=== PATIENT | male | born 1970 | race American Indian/Alaskan Native ===

== ENCOUNTER 2016-11-14 08:23 | Inpatient (IN) | payer MEDICAID, OTHER ==
[2016-11-14 08:24] VITALS: BMI 29.9
[2016-11-14 08:44] VITALS: O2SAT 97
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
[2016-11-14] MEDS ORDERED: Pneumococcal 23-Valent Vaccine IM ONE (13:08)
[2016-11-14] MEDS ORDERED: Influenza Virus Vaccine 45 mcg/0.5 ml Syr IM ONE (13:08)
--- NOTE | 2016-11-15 13:15 | PCM.PYCHPN ---
Psychiatric Progress Note - Psychiatric Progress Note Patient seen today, length of contact: 15 min Patient Chief Complaint: "I am still hearing voices" Problems Identified/Issues Discussed: The pt is seen, chart reviewed, case discussed with staff. The pt is compliant with medications and reports no side-effects. Symptoms are improving slowly but needs more time to stabilize. After care discussed, support and psychoeducation given. He asked the continuity writer to call his ex-, which continuity writer did. She said she knew he was in the hospital already. he wants to go back to [facility] Medication Change: Yes (increase meds) Medical Record Reviewed: Yes Mental Status Examination - Cognitive Function Orientation: Person, Place, Situation, Time Memory: Impaired Attention: Poor Concentration: Poor Association: WNL Fund of Knowledge: Poor - Mood Mood: Depressed, Anxious - Affect Affect: Constricted - Speech Speech: Appropriate - Formal Thought Process Formal Thought Process: Hallucinations, Delusions, Paranoia - Suicidal Ideation Suicidal Ideation: No - Homicidal Ideation Homicidal Ideation: No Goal/Treatment Plan - Goal/Treatment Plan Need for Continued Stay: Discharge may exacerbated symptoms, Severe functional impairment Progress Toward Problem(s) and Goals/Treatment Plan: Continue medications Support and psychoeducation daily Attend groups and activities daily After care planning by PRADIP Estimated Date of D/C: 11/20/16
--- NOTE | 2016-11-16 16:07 | PCM.PYCHPN ---
Psychiatric Progress Note - Psychiatric Progress Note Patient seen today, length of contact: 15 min Patient Chief Complaint: "Voices are mild now" Problems Identified/Issues Discussed: The pt is seen, chart reviewed, case discussed with staff. Symptoms are improving slowly but needs more time to stabilize. Still regressed and isolative. After care discussed briefly, support and psychoeducation given. No SEs from meds Medication Change: No Medical Record Reviewed: Yes Mental Status Examination - Cognitive Function Orientation: Person, Place, Situation, Time Memory: Impaired Attention: Poor Concentration: Poor Association: WNL Fund of Knowledge: Poor - Mood Mood: Depressed, Anxious - Affect Affect: Constricted - Speech Speech: Appropriate - Formal Thought Process Formal Thought Process: Hallucinations, Paranoia - Suicidal Ideation Suicidal Ideation: No - Homicidal Ideation Homicidal Ideation: No Goal/Treatment Plan - Goal/Treatment Plan Need for Continued Stay: Discharge may exacerbated symptoms, Severe functional impairment Progress Toward Problem(s) and Goals/Treatment Plan: Continue medications Support and psychoeducation daily Attend groups and activities daily After care planning by [facility] Estimated Date of D/C: 11/20/16
--- NOTE | 2016-11-17 13:22 | PCM.PYCHPN ---
Psychiatric Progress Note - Psychiatric Progress Note Patient seen today, length of contact: 15 min Patient Chief Complaint: I was hearing voices Problems Identified/Issues Discussed: The pt is seen, chart reviewed, case discussed with staff. Pt mood is irritable and angry today. Pt refused to answer any questions today. Pt stated that he was done for the day and that the only person he would answer to is his psychiatrist. Aftercare discussed, support and psychoeducation given. Medication Change: Yes (increase haldol) Medical Record Reviewed: Yes Mental Status Examination - Cognitive Function Orientation: Person, Place, Situation, Time Memory: Impaired Attention: Poor Concentration: Poor Association: WNL Fund of Knowledge: Poor - Mood Mood: Depressed, Anxious - Affect Affect: Constricted - Speech Speech: Appropriate - Formal Thought Process Formal Thought Process: Hallucinations, Paranoia - Suicidal Ideation Suicidal Ideation: No - Homicidal Ideation Homicidal Ideation: No Goal/Treatment Plan - Goal/Treatment Plan Need for Continued Stay: Discharge may exacerbated symptoms, Severe functional impairment Progress Toward Problem(s) and Goals/Treatment Plan: Schizophrenia paranoid type chronic CBT Psychoeducation Supportive therapy, group therapy, individual therapy Haldol 5 mg by mouth daily Haldol 10 mg by mouth daily at bedtime Cogentin 1 mg by mouth twice a day Trazodone 50 mg by mouth daily at bedtime Seroquel 200 mg by mouth daily at bedtime Alcohol use disorder mild Monitor signs and symptoms Use [place] for abstinence Cannabis use disorder severe Monitor signs and symptoms Use NH for abstinence HTN Continue prescribed medications (ASA, Lisinopril) Monitor signs and symptoms Hypercholesterolemia Continue prescribed medications (Atorvastatin) Monitor signs and symptoms Estimated Date of D/C: 11/20/16
--- NOTE | 2016-11-18 10:25 | PCM.PYCHPN ---
Psychiatric Progress Note - Psychiatric Progress Note Patient seen today, length of contact: 18 min Patient Chief Complaint: "I hear voices" Problems Identified/Issues Discussed: The pt seen, chart reviewed, case discussed. Pt states his mood is "okay" today. Pt states he feels his mood has improved from yesterday. Pt slept well and appetite is good. Pt reports hearing voices that say, "kill yourself." Pt states that he ignores the voices and has no intentions of suicide. Pt denies intentions of hurting others. Pt denies visual hallucinations. Pt denies being paranoid and does not believe others can read his mind. Patient's plan is to go home and continue taking his meds. He states that he will continue to see his psychiatrist. Aftercare discussed, support and psychoeducation given. Medical Problems: Hypertension Medication Change: Yes (Increase Haldol) Medical Record Reviewed: Yes Mental Status Examination - Cognitive Function Orientation: Person, Place, Situation, Time Memory: Impaired Attention: WNL Concentration: Poor Association: WNL Fund of Knowledge: Poor - Mood Mood: Depressed, Anxious - Affect Affect: Constricted - Speech Speech: Appropriate - Formal Thought Process Formal Thought Process: Hallucinations, Paranoia - Suicidal Ideation Suicidal Ideation: No - Homicidal Ideation Homicidal Ideation: No Goal/Treatment Plan - Goal/Treatment Plan Need for Continued Stay: Discharge may exacerbated symptoms, Severe functional impairment Progress Toward Problem(s) and Goals/Treatment Plan: Schizophrenia paranoid type-chronic CBT Psychoeducation Supportive therapy, group therapy, individual therapy Haldol 10 mg by mouth daily Haldol 10 mg by mouth daily at bedtime Cogentin 1 mg by mouth twice a day Trazodone 50 mg by mouth daily at bedtime Seroquel 200 mg by mouth daily at bedtime Alcohol use disorder mild Monitor signs and symptoms Use [place] for abstinence Cannabis use disorder severe CBT and psychoeducation Monitor signs and symptoms Use [place] for abstinence HTN Continue prescribed medications (ASA, Lisinopril) Monitor signs and symptoms Hypercholesterolemia Continue prescribed medications (Rosuvastatin Calcium) Monitor signs and symptoms Estimated Date of D/C: 11/20/16 - Smoking Cessation Smoking Cessation Initiated: No
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
--- NOTE | 2016-11-19 09:49 | PCM.PYCHPN ---
Psychiatric Progress Note - Psychiatric Progress Note Patient seen today, length of contact: 18 min Patient Chief Complaint: "I hear voices" Problems Identified/Issues Discussed: The pt seen, chart reviewed, case discussed. as per staff patient is better than yesterday. He reports improvement in his mood and voices. As per him the voices are calm down. he has started attending groups and meetings and appears more organized and less internally preoccupied. Patient's plan is to go home and continue taking his meds. He states that he will continue to see his psychiatrist. Discussed the possibility of Haldol Decanoate injection with the patient, but patient refused Aftercare discussed, support and psychoeducation given. Medical Problems: Hypertension Medication Change: No Medical Record Reviewed: Yes Mental Status Examination - Cognitive Function Orientation: Person, Place, Situation, Time Memory: Impaired Attention: WNL Concentration: WNL Association: WNL Fund of Knowledge: Poor - Mood Mood: Depressed, Anxious - Affect Affect: Constricted - Speech Speech: Appropriate - Formal Thought Process Formal Thought Process: Hallucinations, Paranoia - Suicidal Ideation Suicidal Ideation: No - Homicidal Ideation Homicidal Ideation: No Goal/Treatment Plan - Goal/Treatment Plan Need for Continued Stay: Discharge may exacerbated symptoms, Severe functional impairment Progress Toward Problem(s) and Goals/Treatment Plan: Schizophrenia paranoid type-chronic CBT Psychoeducation Supportive therapy, group therapy, individual therapy Haldol 10 mg by mouth daily Haldol 10 mg by mouth daily at bedtime Cogentin 1 mg by mouth twice a day Trazodone 50 mg by mouth daily at bedtime Seroquel 200 mg by mouth daily at bedtime Alcohol use disorder mild Monitor signs and symptoms Use [place] for abstinence Cannabis use disorder severe CBT and psychoeducation Monitor signs and symptoms Use [place] for abstinence HTN Continue prescribed medications (ASA, Lisinopril) Monitor signs and symptoms Hypercholesterolemia Continue prescribed medications (Rosuvastatin Calcium) Monitor signs and symptoms Estimated Date of D/C: 11/20/16 - Smoking Cessation Smoking Cessation Initiated: No
[2016-11-19] MEDS ORDERED: Bacitracin 500 Units/gm Oint Foilpak UD TOP PRN (09:57)
--- NOTE | 2016-11-20 09:37 | PCM.PYCHDC ---
Mental Status Examination - Mental Status Examination Orientation: Person, Place, Situation, Time Memory: Impaired Mood: Anxious Affect: Constricted Speech: Appropriate Attention: Poor Concentration: Poor Association: WNL Fund of Knowledge: Poor Formal Thought Process: No Impairment Suicidal Ideation: No Current Homicidal Ideation?: No Discharge Summary - Discharge Note Reason for Hospitalization: Hearing voices, acute exacerbation of psychosis Consultations:: List each consultation separately and include: 1. Reason for request. 2. Findings. 3. Follow-up Summary of Hospital Course include:: 1. Description of specific treatment plan utilized for patients during their course of treatmen. 2. Summarize the time- course for resolution of acute symptoms and/or regressed behaviors. 3. Describe issues identified and worked on during hospitalization. 4. Describe medication utilized. 5. Describe medical problems identified and treated. 6. Reassessment of suicide risk Summary of Hospital Course: Hospital course: The pt was admitted and started on treatment with psychotherapy, support, psychoeducation and medications. HI for abstinence form drugs and CBT used. The pt attended groups and activities, as well as milieu therapy. All the risks and benefits of medications are discussed and the patient understood and agreed. After care discussed with the patient. - Final Diagnosis (DSM 5) Condition upon Discharge: STABLE DSM 5: Schizophrenia, acute exacerbation Cannabis use d/o Alcohol use d/o Disposition: HOME/ ROUTINE Follow-up Treatment Plan: Continue below medications after discharge. Follow after care plan as discussed: Dr. Coronado at [facility] for 11/19/16 at 10:00 a.m. Use relapse prevention skills Return to ER or call 911 if suicidal, homicidal or symptoms relapse. Stay away from stress, alcohol and drugs. Prescriptions/Medication Reconciliation: traZODone [Desyrel] 50 mg PO HS #30 tab Aspirin [Ecotrin] 81 mg PO DAILY #30 tabec Haloperidol [Haldol] 10 mg PO HS #30 tab QUEtiapine [SEROquel] 200 mg PO HS #30 tab Lisinopril [Zestril] 10 mg PO DAILY #30 tab
[2016-11-20 14:09] VITALS: BP 133/84; PULSE 62; RESP 20; TEMP 97.7
== END 2016-11-20 14:15 | disposition home or self-care (01) | DRG 430 ==
LOC: C.ER 08:23 → C.5E 08:34
PROVIDERS: ADMIT Psychiatry & Neurology Psychiatry; ATTEND Psychiatry & Neurology Psychiatry
PROC: GZHZZZZ Group Psychotherapy (ICD-10-PCS; principal; 2016-11-14)
PROC: GZ56ZZZ Individual Psychotherapy, Supportive (ICD-10-PCS; 2016-11-14)
PROC: 0HBRXZZ Excision of Toe Nail, External Approach (ICD-10-PCS; 2016-11-18)
PROC: 0HBRXZZ Excision of Toe Nail, External Approach (ICD-10-PCS; 2016-11-18)
PROC: 0HBRXZZ Excision of Toe Nail, External Approach (ICD-10-PCS; 2016-11-18)
PROC: 0HBRXZZ Excision of Toe Nail, External Approach (ICD-10-PCS; 2016-11-18)
PROC: 0HBRXZZ Excision of Toe Nail, External Approach (ICD-10-PCS; 2016-11-18)
PROC: 0HBRXZZ Excision of Toe Nail, External Approach (ICD-10-PCS; 2016-11-18)
PROC: 0HBRXZZ Excision of Toe Nail, External Approach (ICD-10-PCS; 2016-11-18)
PROC: 0HBRXZZ Excision of Toe Nail, External Approach (ICD-10-PCS; 2016-11-18)
PROC: 0HBRXZZ Excision of Toe Nail, External Approach (ICD-10-PCS; 2016-11-18)
PROC: 0HBRXZZ Excision of Toe Nail, External Approach (ICD-10-PCS; 2016-11-18)
DX: F20.0 Paranoid schizophrenia (principal); I10 Essential (primary) hypertension; F10.10 Alcohol abuse, uncomplicated; F12.90 Cannabis use, unspecified, uncomplicated; E78.00 Pure hypercholesterolemia, unspecified; F17.210 Nicotine dependence, cigarettes, uncomplicated; L60.2 Onychogryphosis

== ENCOUNTER 2018-08-17 18:15 | Outpatient (CLI) | payer OTHER | END 2018-08-17 18:16 | disposition home or self-care (01) | LOC: C.SLEEP 18:15 | DX: G47.33 Obstructive sleep apnea (adult) (pediatric) (principal) ==